=== PATIENT | female | born 1965 | race Caucasian/White ===

== ENCOUNTER → 2019-04-11 | Outpatient (CLI) | payer OTHER ==
[~2019-04-11] MED LIST: ACET500 PO; CBD OIL TOP; CEPH500 PO; CYCL10 PO; GABA300 PO; HYDACE7.5; MELA3; MELATONIN1 MG PO; OXYC10TA19 PO; OXYC20ER; TEMA7.5; TRAZ100 PO; ZOLP10 PO
== END | disposition home or self-care (01) ==
LOC: LAB SHORT 10:43 → PLD 10:43
DX: D48.5 Neoplasm of uncertain behavior of skin (principal)
CPT/HCPCS: 88305

== ENCOUNTER 2019-05-15 06:19 | Day surgery (SDC) | payer OTHER ==
[~2019-05-15] VITALS: Ht 175.3 cm; Wt 74.3 kg
[~2019-05-15 06:19] MED LIST changes: -ACET500 PO
--- NOTE | 2019-05-15 07:11 | NUR ---
Ambulatory in Day Surgery. Surgical site prepped with 2% Chlorhexidine cloth wipe. History, Chart, Medications and Allergies reviewed before start of procedure. Lungs clear T/O to Auscultation. Patient confirms NPO status and agrees with scheduled surgery. Pre-Op teaching done. Pt verbalizes understanding. Patient reports completing Chlorhexadine shower X2 prior to admission to hospital.
--- NOTE | 2019-05-15 15:09 | NUR ---
LE: I JUST REALIZED i DID NOT COMPLETE THE ADMISSION ASSESSMENT ON PATIENT. HER LEVEL OF SENSATION WAS AT S1 ON ARRIVAL TO PACU. SHE HAD AN 18G THAT WAS PATENT.
--- NOTE | 2019-05-15 17:09 | NUR ---
SHIFT SUMMARY PT A&OX4, VSS, S/P R TKA, AQUACEL CDI. PAIN MANAGED PER EMAR. UMER PO, DENIES N&V. AMB W/FWW & SBA - HALLWAYS AND TO BRP. VOIDING WELL. UP TO CHAIR ALL AFTERNOON. PHYSICAL THERAPY EVAL COMPLETE. AT BEDSIDE. WILL REPORT TO ONCOMING NOC RN.
--- NOTE | 2019-05-16 01:10 | NUR ---
0110: RECEIVED REPORT AND ASSUMED CARE FROM PREVIOUS RN. PT ASLEEP IN BED ON LEFT SIDE AND APPEARS COMFORTABLE @ THIS TIME. CALL LIGHT IN REACH.
[2019-05-16 03:48] LABS: BASOPHILS ABSOLUTE AUTO 0.03 K/mm3 (0.00-0.23); BASOPHILS PERCENT AUTO 0 % (0-2); EOSINOPHILS ABSOLUTE AUTO 0.04 K/mm3 (0.00-0.68); EOSINOPHILS PERCENT AUTO 0 % (0-6); Hematocrit 34.2 % (33.0-51.0); Hemoglobin 11.2 g/dL (11.5-16.0); IMMATURE GRAN ABSOLUTE AUTO 0.05 K/mm3 (0.00-0.10); IMMATURE GRAN PERCENT AUTO 0 % (0-1); LYMPHOCYTES PERCENT AUTO 20 % (21-46); MONOCYTES ABSOLUTE AUTO 1.22 K/mm3 (0.16-1.47); MONOCYTES PERCENT AUTO 9 % (4-13); Mean Corpuscular HGB 32.8 pg (26.0-34.0); Mean Corpuscular HGB Conc 32.7 g/dL (31.5-36.5); Mean Corpuscular Volume 100 fL (80-100); Mean Platelet Volume 9.7 fL (9.1-12.4); NEUTROPHILS ABSOLUTE AUTO 9.98 K/mm3 (1.96-9.15); NEUTROPHILS PERCENT AUTO 71 % (41-73); Platelet Count 335 K/mm3 (150-400); RDW Coefficient Variation 12.9 % (11.7-14.2); RDW Standard Deviation 47.4 fL (35.1-46.3); Red Blood Cell Count 3.41 M/mm3 (3.80-5.20); White Blood Cell Count 14.12 K/mm3 (4.00-11.30)
[2019-05-16 04:11] LABS: Anion Gap 6 mmol/L (6-16); Blood Urea Nitrogen 10 mg/dL (8-24); Bun/Creatinine Ratio 18.5 (12.0-20.0); CO2, Blood 27 mmol/L (21-32); Calcium, Blood 8.7 mg/dL (8.5-10.1); Chloride, Blood 112 mmol/L (98-108); Creatinine, Blood 0.54 mg/dL (0.40-1.00); Glomerular Filtration Rate >60 (60-); Glucose, Blood 117 mg/dL (70-99); Magnesium, Blood 2.1 mg/dL (1.6-2.4); Sodium, Blood 145 mmol/L (136-145)
--- NOTE | 2019-05-16 05:26 | NUR ---
SUMMARY: POD [address] VILLAREAL. VSS, AFEBRILE, ROOM AIR. TOLERATING REG DIET, VOIDING CLEAR YELLOW AND AMBULATED HALLS X3 THIS SHIFT. PT PAIN WELL CONTROLLED WITH TORDAL, TYLENOL AND 10MG ROXICODONE X3 THIS SHIFT. ANTICIPATE PT/OT AND PROBABLE DC HOME LATER THIS DAY.
[2019-05-16] MEDS ORDERED: ACET500 PO (09:06)
--- NOTE | 2019-05-16 12:29 | NUR ---
DISCHARGE SUMMARY PT A&OX4, VSS, LEFT FLOOR VIA WC WITH SPRING REPAIRER HELPER HAND, TO GO HOME WITH , WITH ALL PERSONAL POSSESSIONS INCLUDING DISCHARGE PACKET AND 1 NARC SCRIPT AND 2 AQUACEL DRESSINGS. DC INSTRUCTIONS PROVIDED. PT REP UNDERSTANDING THOSE INSTRUCTIONS INCLUDING OK TO SHOWER, NO TUB/JACUZZI, DRESSING CHANGES ON MONDAYS, FU WITH SURGEON AND PHYSICAL THERAPY APPTS. IV DC'D.
== END 2019-05-16 12:20 | disposition home or self-care (01) ==
LOC: ORSCMMR 06:19 → ORD 07:30 → ORSCMMR 07:30 → SURS 11:10 → ORSCMMR 05-16 12:20 → ORD 05-22 07:30
PROVIDERS: Orthopaedic Surgery
PROC: 0SRC0J9 Replacement of Right Knee Joint with Synthetic Substitute, Cemented, Open Approach (ICD-10-PCS; principal; 2019-05-15 07:30)
DX: M17.11 Unilateral primary osteoarthritis, right knee (principal); Z79.899 Other long term (current) drug therapy; Z87.891 Personal history of nicotine dependence
CPT/HCPCS: 36415; 73560-RT; 80048; 83735; 85025; 88300; 97110; 97116; 97162; 97530; C1776; J0171; J0690; J0735; J1885; J2250; J2370; J2405; J2704; J2795; J3010; J7120

== ENCOUNTER → 2020-08-07 | Outpatient (CLI) | payer BC ==
[~2020-08-07] MED LIST changes: +ACET500 PO
[2020-08-10 09:10] LABS: HPV 16 Negative (Negative); HPV 18 Negative (Negative); HPV OTHER HR TYPES Negative (Negative)
== END | disposition home or self-care (01) ==
LOC: LAB 14:21
PROVIDERS: Obstetrics & Gynecology
DX: Z01.419 Encounter for gynecological examination (general) (routine) without abnormal findings (principal)
CPT/HCPCS: 87624; G0123

== ENCOUNTER → 2021-08-04 | Outpatient (CLI) | payer BC | LOC: LAB 11:39 → LAB SHORT 11:39 | DX: D48.5 Neoplasm of uncertain behavior of skin (principal); D23.39 Other benign neoplasm of skin of other parts of face; D22.39 Melanocytic nevi of other parts of face | CPT/HCPCS: 88305 ==

== ENCOUNTER → 2022-08-26 | Outpatient (CLI) | payer BC ==
[2022-08-28 11:11] LABS: COTININE Negative ng/mL (Cutoff=300)
== END | disposition home or self-care (01) ==
LOC: LAB SHORT 11:34 → LAB FUT 08-24 10:00
PROVIDERS: Orthopaedic Surgery
DX: Z01.812 Encounter for preprocedural laboratory examination (principal); M17.12 Unilateral primary osteoarthritis, left knee; Z87.891 Personal history of nicotine dependence

== ENCOUNTER 2022-12-07 06:03 | Day surgery (SDC) | payer BC ==
[~2022-12-07] VITALS: Ht 172.7 cm; Wt 79.5 kg
[~2022-12-07 06:03] MED LIST changes: +BENADRYL25 MG PO; +CHANTIX1 MG PO; +IBUP400 PO; +MERIBIN5 MG PO; +MULVITA PO
--- NOTE | 2022-12-07 11:15 | NUR ---
ARRIVAL PATIENT ARRIVED TO UNIT VIA BED. LUNGS CLEAR, VSS ON 2L 02 TO MAINTAIN O2 SATS >92%. PAIN 8/10 TO LEFT KNEE. AQUACEL TO LEFT KNEE, C/D/I. POLAR PACK IN PLACE TO LEFT KNEE. ORIENTED TO ROOM & CALL LIGHT, IN REACH. PLAN TO MEDICATE PER EMAR.
--- NOTE | 2022-12-07 17:20 | NUR ---
SHIFT SUMMARY POS 0 L TKA, AQUACEL TO LEFT KNEE, C/D/I. PATIENT REPORTIING MODERATE AMOUNTS OF PAIN, MEDICATING PER EMAR. UP TO BATHROOM & CHAIR 1P MINIMAL ASSIST W/ FWW & GB. EATING, DRINKING, & VOIDING WELL. VSS ON RA. CALLS APPROPRIATELY, WILL REPORT TO ONCOMING RN AT 1900.
[2022-12-07] MEDS ORDERED: ASPI81CH PO (18:55)
--- NOTE | 2022-12-08 04:12 | NUR ---
SHIFT SUMMARY PT WITH UNMANAGED PAIN AT START OF SHIFT. X1 DOSE OF IV DILAUDID FOR BREAKTHROUGH PAIN + INCREASING ROXICODONE DOSE TO 15MG HAS SEEMED TO BE EFFECTIVE. TYLENOL + TORADOL SCHEDULED. PT NOW REPORTING PAIN TO RIGHT KNEE AT TOLERABLE LEVEL. POLAR PACK REMAINS IN PLACE. UP WITH 1 SBA USING FWW + GB TO RESTROOM. AQUACEL DRESSING REMAINS CDI. VSS. USES CALL LIGHT APPROPRIATELY.
[2022-12-08 05:53] LABS: BASOPHILS ABSOLUTE AUTO 0.02 K/mm3 (0.00-0.23); BASOPHILS PERCENT AUTO 0 % (0-2); EOSINOPHILS ABSOLUTE AUTO 0.12 K/mm3 (0.00-0.68); EOSINOPHILS PERCENT AUTO 1 % (0-6); Hematocrit 27.1 % (33.0-51.0); Hemoglobin 9.2 g/dL (11.5-16.0); IMMATURE GRAN ABSOLUTE AUTO 0.04 K/mm3 (0.00-0.10); IMMATURE GRAN PERCENT AUTO 0 % (0-1); LYMPHOCYTES ABSOLUTE AUTO 3.22 K/mm3 (0.84-5.20); LYMPHOCYTES PERCENT AUTO 27 % (21-46); MONOCYTES ABSOLUTE AUTO 1.05 K/mm3 (0.16-1.47); MONOCYTES PERCENT AUTO 9 % (4-13); Mean Corpuscular HGB 34.5 pg (26.0-34.0); Mean Corpuscular HGB Conc 33.9 g/dL (31.5-36.5); Mean Corpuscular Volume 102 fL (80-100); Mean Platelet Volume 9.3 fL (9.1-12.4); NEUTROPHILS ABSOLUTE AUTO 7.65 K/mm3 (1.96-9.15); NEUTROPHILS PERCENT AUTO 63 % (41-73); Platelet Count 274 K/mm3 (150-400); RDW Coefficient Variation 13.2 % (11.7-14.2); RDW Standard Deviation 48.9 fL (35.1-46.3); Red Blood Cell Count 2.67 M/mm3 (3.80-5.20)
[2022-12-08 06:16] LABS: Calcium, Blood 8.3 mg/dL (8.5-10.1); Creatinine, Blood 0.53 mg/dL (0.40-1.00); Potassium, Blood 3.5 mmol/L (3.5-5.5)
--- NOTE | 2022-12-08 09:59 | NUR ---
DISCHARGE PATIENT CLEARED THERAPY WELL. EATING, DRINKING, & VOIDING WELL. DENIES N/V. REPORTS MODERATE TO HIGH PAIN, ALTHOUGH PATIENT VERBALIZES UNDERSTANDING OF HIGH PAIN AT THIS TIME WITH HER HISTORY OF [facility] USE OF PAIN MEDICATIONS, REMAINS COMFORTABLE WITH DC. DISCUSSED DISCHARGE INSTRUCTIONS, INCISION CARE, & FOLLOW-UP. SENT WITH PATIENT. PATIENT WAITING FOR RIDE. WILL ESCORT OUT VIA W/C.
--- NOTE | 2022-12-08 11:05 | NUR ---
12/08/22 1105 Allegra Jarvis VERIFICATIONS: EDIT CHART.
--- NOTE | 2022-12-08 11:28 | NUR ---
ESCORTED OUT VIA W/C
== END 2022-12-08 11:24 | disposition home or self-care (01) ==
LOC: ORSCMMR 06:03 → ORD 07:30 → ORSCMMR 07:30 → SURS 11:18 → ORSCMMR 12-08 11:24 → ORD 12-28 07:30
PROVIDERS: Orthopaedic Surgery
PROC: 0SRD0J9 Replacement of Left Knee Joint with Synthetic Substitute, Cemented, Open Approach (ICD-10-PCS; principal; 2022-12-07 07:30)
DX: M17.12 Unilateral primary osteoarthritis, left knee (principal); Z87.891 Personal history of nicotine dependence; Z79.899 Other long term (current) drug therapy
CPT/HCPCS: 36415; 73560-LT; 80048; 83735; 85025; 97110; 97116; 97162; 97530; A9270; C1713; C1776; J0171; J0690; J0735; J1100; J1170; J1885; J2250; J2370; J2405; J2704; J2795; J3010; J7120

== ENCOUNTER 2023-04-09 10:50 | Emergency (ER) | payer BC ==
[~2023-04-09] VITALS: Ht 175.3 cm; Wt 73.5 kg
[~2023-04-09 10:50] MED LIST changes: +ASPI81CH PO
[2023-04-09 11:21] LABS: BASOPHILS ABSOLUTE AUTO 0.07 K/mm3 (0.00-0.23); BASOPHILS PERCENT AUTO 1 % (0-2); EOSINOPHILS ABSOLUTE AUTO 0.14 K/mm3 (0.00-0.68); EOSINOPHILS PERCENT AUTO 2 % (0-6); Hematocrit 38.9 % (33.0-51.0); Hemoglobin 13.2 g/dL (11.5-16.0); IMMATURE GRAN ABSOLUTE AUTO 0.04 K/mm3 (0.00-0.10); IMMATURE GRAN PERCENT AUTO 0 % (0-1); LYMPHOCYTES ABSOLUTE AUTO 2.29 K/mm3 (0.84-5.20); LYMPHOCYTES PERCENT AUTO 24 % (21-46); MONOCYTES ABSOLUTE AUTO 0.73 K/mm3 (0.16-1.47); MONOCYTES PERCENT AUTO 8 % (4-13); Mean Corpuscular HGB 32.3 pg (26.0-34.0); Mean Corpuscular HGB Conc 33.9 g/dL (31.5-36.5); Mean Corpuscular Volume 95 fL (80-100); Mean Platelet Volume 9.4 fL (9.1-12.4); NEUTROPHILS ABSOLUTE AUTO 6.33 K/mm3 (1.96-9.15); NEUTROPHILS PERCENT AUTO 66 % (41-73); Platelet Count 462 K/mm3 (150-400); RDW Coefficient Variation 14.9 % (11.7-14.2); RDW Standard Deviation 51.7 fL (35.1-46.3); Red Blood Cell Count 4.09 M/mm3 (3.80-5.20)
[2023-04-09 11:39] LABS: Albumin, Blood 3.7 g/dL (3.4-5.0); Bilirubin, Total 0.5 mg/dL (0.1-1.0); Bun/Creatinine Ratio 13.8 (12.0-20.0); Calcium, Blood 9.2 mg/dL (8.5-10.1); Creatinine, Blood 0.58 mg/dL (0.40-1.00); Globulin, Blood 3.7 g/dL (2.2-4.0); Potassium, Blood 3.7 mmol/L (3.5-5.5); Total Protein, Blood 7.4 g/dL (6.4-8.2)
[2023-04-09 12:55] LABS: Source, Urine Clean Catch
[2023-04-09 13:02] LABS: Appearance, Urine Hazy (Clear); Blood, Urine 3+ (Neg); Color, Urine Yellow (P-Yellow); Glucose Qualitative, Urine Neg (Neg); Ketones, Urine 4+ (Neg); Leukocyte Esterase, Urine 2+ (Neg); Nitrite, Urine Neg (Neg); Protein, Urine 1+ (Neg); Specific Gravity, Urine 1.025 (1.003-1.022); Urobilinogen, Urine 1+ (Normal)
[2023-04-09 13:12] LABS: Bilirubin, Urine 1+ (Neg)
[2023-04-09 13:14] LABS: Amorphous Light (0-Heavy); Bacteria Mod /hpf; Mucus Heavy (0-Heavy); Squamous Epithelial Cells Many /hpf (Few)
[2023-04-09] MEDS ORDERED: Omeprazole20 M1 PO (14:53)
[2023-04-09 15:25] VITALS: BP 119/87
[2023-04-09] MEDS ORDERED: HYDR1TAB94 PO ×2 (15:36→15:39)
== END 2023-04-09 15:48 | disposition home or self-care (01) ==
LOC: ER 10:50
PROVIDERS: Emergency Medicine
DX: K29.70 Gastritis, unspecified, without bleeding (principal); K20.90 Esophagitis, unspecified without bleeding; Z79.82 Long term (current) use of aspirin; Z79.899 Other long term (current) drug therapy; Z87.891 Personal history of nicotine dependence
CPT/HCPCS: 80053; 81001; 83690; 85025; 96374; 96375; 99283-25; A9270; C9113; J1170; J2405

== ENCOUNTER → 2024-12-21 | Outpatient (CLI) | payer BC ==
[~2024-12-21] MED LIST changes: +HYDR1TAB94 PO; +Omeprazole20 M1 PO
== END ==
LOC: LAB 11:26 → LAB SHORT 11:26
DX: R10.84 Generalized abdominal pain (principal)
CPT/HCPCS: 87086

== ENCOUNTER → 2025-01-16 | Outpatient (CLI) | payer BC ==
[2025-01-19 17:28] LABS: 6-ACETYLMORPHINE, URN, QUANT <10 ng/mL; CODEINE, URN, QUANT <20 ng/mL; HYDROCODONE, URN, QUANT <20 ng/mL; HYDROMORPHONE, URN, QUANT <20 ng/mL; MORPHINE, URN, QUANT <20 ng/mL; NORHYDROCODONE, URN, QUANT <20 ng/mL; NOROXYCODONE, URN, QUANT 34 ng/mL; NOROXYMORPHONE, URN, QUANT <20 ng/mL; OXYCODONE, URN, QUANT <20 ng/mL; OXYMORPHONE, URN, QUANT <20 ng/mL
== END | disposition home or self-care (01) ==
LOC: LAB 12:08 → LAB SHORT 12:08
DX: G89.4 Chronic pain syndrome (principal)
CPT/HCPCS: G0480